=== PATIENT | female | born 1990 | race Hispanic/Latino ===

== ENCOUNTER 2017-03-03 17:32 | Outpatient (CLI) | payer OTHER ==
[2017-03-03 17:57] VITALS: BP 106/74
[2017-03-03] MEDS ORDERED: LACTATED RINGERS 500 ML IV ONE (19:00)
--- NOTE | 2017-03-03 20:19 | Event Note ---
Date: 03/03/17 preliminary report discussed with patient and : 36% grwoth, grade 1 placenta, vtx, GUI 13, NST cat 1 with irregular contractions. Images are not available to review at this time. Instructed to perform kick counts,call office for any concerns. Keep appointment for Tuesday.
--- NOTE | 2017-03-04 07:58 | Ultrasound Report ---
OB ULTRASOUND followup History: well-being. Technique: Transabdominal ultrasound with Doppler interrogation. Gestation: Single Position: Cephalic Amniotic Fluid: Normal GUI = 13.9 cm Placenta: Anterior Placental Grade: 1 Heart Rate: 149 BPM Cervical length: Obscured cm (Normal > 3 cm) BPD: 8.6 cm = 34 w 6 d HC: 32.2 cm = 36 w 2 d AC: 32.7 cm = 36 w 4 d FL: 7.3 cm = 37 w 2 d HC/AC Ratio: 0.98 Cephalic Index: 79.3 Estimated Weight: 2973 grams. 36 percentile. LMP: Not given Clinical age = 37 w 3 d EDC: 03/21/17 US Gest. Age = 36 w 2 d EDC: 03/29/17
== END 2017-03-03 20:12 | disposition home or self-care (01) ==
LOC: TRG 17:32
PROVIDERS: ATTEND Obstetrics & Gynecology
DX: O47.1 False labor at or after 37 completed weeks of gestation (principal); Z3A.37 37 weeks gestation of pregnancy
CPT/HCPCS: 59025; 76816

== ENCOUNTER 2018-05-02 11:52 | Emergency (ER) | payer OTHER ==
[2018-05-02] MEDS ORDERED: ZOFRAN IV ONE ×2 (12:27→14:34)
[2018-05-02] MEDS ORDERED: MORPHINE IV ONE (12:28)
[2018-05-02 12:46] LABS: Bilirubin,Urine NEG (Negative); Blood,Urine LG (Negative); Color,Urine Yellow (Yellow); Mucus,Urine 3+ /HPF; Urobilinogen,Urine < 2.0 mg/dL (<2.0)
[2018-05-02 12:47] LABS: RBC,Urine > 182.0 /HPF (0.0-6.0)
--- NOTE | 2018-05-02 12:57 | Emergency Department Report ---
Blank Doc - Documentation Documentation: Patient presents to the emergency department with a chief complaint of left flank pain. Patient states she has a history of kidney stones with surgical intervention previously. Patient denies nausea or vomiting with the pain. Patient states the pain is sharp in nature started this morning. Patient has no other complaints. Patient is now pain-free after receiving the morphine and Zofran. Plan will be to do CT of abdomen with blood work. Care be turned over to the mid-level Provider within the available for consultation. PHYSICAL exam vessel CVA tenderness and abdomen is soft, nontender, nondistended, positive bowel sounds.
[2018-05-02 13:03] LABS: HCG Qualitative,Urine Negative (Negative)
[2018-05-02 13:20] LABS: Basophils % (Auto) 0.2 % (0.0-1.8); Eosinophils % (Auto) 0.2 % (0.0-4.3); Hematocrit 39.4 % (30.3-42.9); Hemoglobin 13.2 gm/dl (10.1-14.3); Lymphocytes # (Auto) 1.3 K/mm3 (1.2-5.4); Lymphocytes % (Auto) 9.4 % (13.4-35.0); Mean Corpuscular HGB Conc 34 % (30-34); Mean Corpuscular Hemoglobin 30 pg (28-32); Mean Corpuscular Volume 89 fl (79-97); Monocytes # (Auto) 0.6 K/mm3 (0.0-0.8); Monocytes % (Auto) 4.5 % (0.0-7.3); Platelet Count 247 K/mm3 (140-440); Red Blood Count 4.44 M/mm3 (3.65-5.03); Red Cell Distribution Width 13.6 % (13.2-15.2)
[2018-05-02 13:44] LABS: Alanine Aminotransferase 8 units/L (7-56); Albumin 4.3 g/dL (3.9-5); BUN/Creatinine Ratio 20; Blood Urea Nitrogen 12 mg/dL (7-17); Calcium 8.8 mg/dL (8.4-10.2); Hemolysis Index 13
--- NOTE | 2018-05-02 13:52 | Emergency Department Report ---
ED Abdominal Pain HPI - General Chief Complaint: Abdominal Pain Stated Complaint: POSSIBLE KIDNEY STONE Time Seen by Provider: 05/02/18 12:26 Source: patient, family Mode of arrival: Ambulatory Limitations: No Limitations - History of Present Illness Initial Comments: Patient here complaining of left flank pain onset at 10 AM. States she feels like she has a kidney stone which she has a history of. She said she has decreased urine output and some blood in her urine. Pain is 8 out of 10 and sharp stabbing into her left flank area. No medication taken prior to coming to the emergency room. She denies any nausea or vomiting. Denies any fever or chills. Denies any vaginal bleeding or discharge. No alleviating or exacerbating factors. Denies any shortness of breath or chest pain. MD Complaint: flank pain -: This morning Location: L flank Radiation: none Migration to: no migration Severity: severe Severity scale (0 -10): 8 Quality: stabbing, sharp Consistency: intermittent Improves With: nothing Worsens With: nothing Context: other (kidney stones) Associated Symptoms: hematuria, other (decreased urine output). denies: nausea , vomiting, diarrhea, fever, chills, constipation, dysuria, hematemesis, hematochezia, melena, anorexia, syncope Treatments Prior to Arrival: other (none) - Related Data Previous Rx's Medication Instructions Recorded Last Taken Type Ciprofloxacin HCl [Ciprofloxacin 500 mg PO Q12H #14 tab 10/20/15 Unknown Rx TAB] HYDROcodone/APAP 5-325 [[address] 1 each PO Q6HR PRN #20 tablet 10/20/15 Unknown Rx 5/325] Ibuprofen [Motrin] 600 mg PO Q8H PRN #40 tablet 10/20/15 Unknown Rx Docusate Sodium [Colace] 100 mg PO BID PRN #60 capsule 03/31/17 Unknown Rx Ferrous Sulfate [Feosol 325 MG tab] 325 mg PO BID #60 tablet 03/31/17 Unknown Rx Ibuprofen [Motrin 800 MG tab] 800 mg PO TID PRN #15 tablet 05/02/18 Unknown Rx Ondansetron (Nf) [Zofran TAB] 8 mg PO Q8HR PRN #16 tablet 05/02/18 Unknown Rx oxyCODONE /ACETAMINOPHEN [Percocet 1 - 2 tab PO Q4H PRN #20 tablet 05/02/18 Unknown Rx 5/325 mg] Allergies Allergy/AdvReac Type Severity Reaction Status Date / Time Sulfa (Sulfonamide Allergy Hives Verified 05/02/18 12:04 Antibiotics) ED Review of Systems ROS: Stated complaint: POSSIBLE KIDNEY STONE Other details as noted in HPI Constitutional: denies: chills, fever Eyes: denies: eye discharge Respiratory: denies: cough, shortness of breath, SOB with exertion, SOB at rest , wheezing Cardiovascular: denies: chest pain, palpitations, edema, syncope Gastrointestinal: other (left flank pain). denies: abdominal pain, nausea, vomiting, diarrhea Genitourinary: denies: urgency, dysuria, discharge Musculoskeletal: denies: back pain, joint swelling, arthralgia, myalgia Skin: denies: rash, lesions Neurological: denies: headache ED Past Medical Hx - Past Medical History Previous Medical History?: Yes Hx Hypertension: No Hx Congestive Heart Failure: No Hx Diabetes: No Hx Deep Vein Thrombosis: No Hx Renal Disease: No (kidney stones) Hx Sickle Cell Disease: No Hx Kidney Stones: Yes Hx Asthma: No Hx COPD: No Hx HIV: No - Surgical History Past Surgical History?: Yes Additional Surgical History: KIDNEY STONE REMOVED - Family History Family history: hypertension - Social History Smoking Status: Never Smoker Substance Use Type: None - Medications Home Medications: Home Medications Medication Instructions Recorded Confirmed Last Taken Type Ciprofloxacin HCl [Ciprofloxacin 500 mg PO Q12H #14 tab 10/20/15 03/30/17 Unknown Rx TAB] HYDROcodone/APAP 5-325 [[address] 1 each PO Q6HR PRN #20 tablet 10/20/15 03/30/17 Unknown Rx 5/325] Ibuprofen [Motrin] 600 mg PO Q8H PRN #40 tablet 10/20/15 03/30/17 Unknown Rx Docusate Sodium [Colace] 100 mg PO BID PRN #60 capsule 03/31/17 Unknown Rx Ferrous Sulfate [Feosol 325 MG tab] 325 mg PO BID #60 tablet 03/31/17 Unknown Rx Ibuprofen [Motrin 800 MG tab] 800 mg PO TID PRN #15 tablet 05/02/18 Unknown Rx Ondansetron (Nf) [Zofran TAB] 8 mg PO Q8HR PRN #16 tablet 05/02/18 Unknown Rx oxyCODONE /ACETAMINOPHEN [Percocet 1 - 2 tab PO Q4H PRN #20 tablet 05/02/18 Unknown Rx 5/325 mg] ED Physical Exam - General Limitations: No Limitations General appearance: alert, in no apparent distress - Head Head exam: Present: atraumatic, normocephalic, normal inspection - Eye Eye exam: Present: normal appearance, PERRL, EOMI Pupils: Present: normal accommodation - ENT ENT exam: Present: normal exam, normal orophraynx, mucous membranes moist - Neck Neck exam: Present: normal inspection, full ROM. Absent: tenderness, lymphadenopathy - Respiratory Respiratory exam: Present: normal lung sounds bilaterally. Absent: respiratory distress, chest wall tenderness - Cardiovascular Cardiovascular Exam: Present: regular rate, normal rhythm, normal heart sounds. Absent: systolic murmur, diastolic murmur - GI/Abdominal GI/Abdominal exam: Present: soft, normal bowel sounds. Absent: distended, tenderness, guarding, rebound, rigid, organomegaly - Extremities Exam Extremities exam: Present: normal inspection, full ROM, normal capillary refill , other (No cce. + 2 pulses in all extremities, no neurovascular compromise). Absent: tenderness, pedal edema, joint swelling, calf tenderness - Back Exam Back exam: Present: normal inspection, CVA tenderness (L), other (ambulates without any difficulties). Absent: full ROM, tenderness, CVA tenderness (R), muscle spasm, paraspinal tenderness, vertebral tenderness, rash noted - Neurological Exam Neurological exam: Present: alert, oriented X3, normal gait - Psychiatric Psychiatric exam: Present: normal affect, normal mood - Skin Skin exam: Present: warm, dry, intact, normal color. Absent: rash ED Course Vital Signs 05/02/18 05/02/18 12:04 16:35 Temperature 98.4 F Pulse Rate 77 75 Respiratory 18 18 Rate Blood Pressure 115/74 Blood Pressure 105/73 [Left] O2 Sat by Pulse 96 100 Oximetry - Reevaluation(s) Reevaluation #1: 05/02/18 16:39 She given Zofran 4 mg IV and morphine 4 mg IV for nausea and pain. Her pain has been relieved. Reevaluation #2: 05/02/18 17:10 Visit given 1 L of normal saline, Zofran 4 mg IV for hydration and to prevent nausea. She tolerated well and says she felt a lot better. She was also started on Levaquin 750 mg by mouth for urinary tract infection ED Medical Decision Making - Lab Data Result diagrams: 05/02/18 13:02 05/02/18 13:02 - Radiology Data Radiology results: report reviewed Findings [facility] [address] [place] [address] Cat Scan Report Signed Patient: MANPREET BARRERA MR#: [id number] : 1990 Acct:[id number] Age/Sex: 27 / F ADM Date: 05/02/18 Loc: ED Attending Dr: Ordering Physician: YUAN HEBERT MD Date of Service: 05/02/18 Procedure(s): CT abdomen pelvis wo con Accession Number(s): [id number] cc: YUAN HEBERT MD CT ABDOMEN PELVIS WITHOUT CONTRAST: HISTORY: Abdominal pain. COMPARISON: 2 slice . TECHNIQUE: Helical CT in 1.25mm intervals without IV contrast. Sagittal and coronal reconstructions. FINDINGS: Lung bases: Normal. Liver: Normal. Biliary system: Multiple noncalcified cholesterol stones are noted in the gallbladder. No abnormal biliary dilatation or inflammation. Pancreas: Normal. Spleen: Normal. Kidneys/ureters/bladder: Bilateral renal stones are identified. There are 3 calyceal stones in the right kidney measuring up to 5 mm. There are 5 calyceal stones in the left kidney measuring up to 5 mm. A 5 mm calculus is identified along the intramural portion of the left UVJ resulting in mild left hydronephrosis. Adrenal glands: Normal. Aorta: Normal. Intestines: Unremarkable given no oral contrast was administered. Appendix: Normal. Pelvic viscera: Normal. Ascites: None. Adenopathy: None. Musculoskeletal: Normal. IMPRESSION: Bilateral renal calyceal stones as described. 5 mm calculus at the left UVJ, mildly obstructing. Cholelithiasis. Transcribed By: TTR Dictated By: ANDRES SANTOS JR, MD Electronically Authenticated By: ANDRES SANTOS JR, MD Signed Date/Time: 05/02/18 1400 DD/ 1357 TD/TT: 05/02/18 1400 - Medical Decision Making This is a 27-year-old female here with her family member reported that she is having left flank pain and she is relating it to kidney stone flare. Patient was screen by Dr. Hebert and seen by myself. Orders place and physical finance for left flank pain, acute cystitis with hematuria. CBC and CMP is stable, test is negative. Patient had CT scan of the abdomen and pelvis which was dictated by radiologist's and report reviewed by myself and which shows that she has stones in her kidney and also stone at the left UVJ. I discussed the patient and her family members she voiced understanding. Patient was treated with morphine 4 mg IV to manage her pain and she was given Zofran 8 mg IV and 4 mg increments to manage nausea. She was given normal saline 1 L for hydration. She is able to tolerate oral liquids prior to discharge. Patient is started on Levaquin 750 mg by mouth this managed urinary tract infection. Discharged home in stable condition, pain is controlled, vital signs stable she is afebrile and she was given prescription for Zofran, [address], Motrin and Levaquin and to follow-up with [place] [facility] as discussed. She voiced understanding. Critical care attestation.: If time is entered above; I have spent that time in minutes in the direct care of this critically ill patient, excluding procedure time. 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
--- NOTE | 2018-05-02 14:00 | Cat Scan Report ---
CT ABDOMEN PELVIS WITHOUT CONTRAST: HISTORY: Abdominal pain. COMPARISON: 2 slice 15/. TECHNIQUE: Helical CT in 1.25mm intervals without IV contrast. Sagittal and coronal reconstructions. FINDINGS: Lung bases: Normal. Liver: Normal. Biliary system: Multiple noncalcified cholesterol stones are noted in the gallbladder. No abnormal biliary dilatation or inflammation. Pancreas: Normal. Spleen: Normal. Kidneys/ureters/bladder: Bilateral renal stones are identified. There are 3 calyceal stones in the right kidney measuring up to 5 mm. There are 5 calyceal stones in the left kidney measuring up to 5 mm. A 5 mm calculus is identified along the intramural portion of the left UVJ resulting in mild left hydronephrosis. Adrenal glands: Normal. Aorta: Normal. Intestines: Unremarkable given no oral contrast was administered. Appendix: Normal. Pelvic viscera: Normal. Ascites: None. Adenopathy: None. Musculoskeletal: Normal. IMPRESSION: Bilateral renal calyceal stones as described. 5 mm calculus at the left UVJ, mildly obstructing. Cholelithiasis.
[2018-05-02] MEDS ORDERED: LEVAQUIN PO ONE (14:34)
[2018-05-02] MEDS ORDERED: NACL 0.9% 1000 ML 1,000 ML IV ONE (14:34)
[2018-05-02 16:36] VITALS: BP 105/73
== END 2018-05-02 16:35 | disposition home or self-care (01) ==
LOC: ED 11:52
DX: N20.0 Calculus of kidney (principal); N20.2 Calculus of kidney with calculus of ureter; Z88.2 Allergy status to sulfonamides; Z79.899 Other long term (current) drug therapy
CPT/HCPCS: 36415; 74176; 80053; 81001; 81025; 84703; 85025; 96374; 96375; 99284; J2270; J2405; J7030

== ENCOUNTER 2018-05-18 16:18 | Outpatient (CLI) | payer OTHER ==
--- NOTE | 2018-05-18 21:32 | XRay Report ---
FINAL REPORT EXAM: XR ABDOMEN 1V AP HISTORY: CALCULUS OF KIDNEY TECHNIQUE: KUB view(s) of abdomen. PRIORS: CT KUB, 20 October 2015. FINDINGS: 3-4 calcific densities project over the left renal lower pole outline, largest measuring approximately 3 mm. Gas and stool obscure right renal outline, although there may be some small calcifications also projected over the right renal outline. No other abnormal calcifications. No significant bowel dilatation or apparent pneumoperitoneum. Osseous structures grossly unremarkable. IMPRESSION: 1. Left and possibly right nephrolithiasis. 2. Nonobstructive bowel gas pattern.
== END 2018-05-18 16:19 | disposition home or self-care (01) ==
LOC: XRAY 16:18
PROVIDERS: ATTEND Urology
DX: N20.0 Calculus of kidney (principal)
CPT/HCPCS: 74018

== ENCOUNTER 2018-06-02 07:39 | Outpatient (CLI) | payer OTHER ==
--- NOTE | 2018-06-02 15:04 | Cat Scan Report ---
FINAL REPORT EXAM: CT ABDOMEN PELVIS WO CON HISTORY: CALCULUS OF URETER COMPARISON: CT of the abdomen and pelvis performed on 10/20/2015 TECHNIQUE: Multiple contiguous axial images were obtained from the lung bases to the pubic symphysis without administration of IV contrast. Reformatted sagittal and coronal images were available for review. FINDINGS: Lung bases: Normal. Visualized heart and mediastinum: Normal noncontrast appearance. Liver: Normal noncontrast appearance. Spleen: Normal noncontrast appearance. Pancreas: Normal noncontrast appearance. Gallbladder and Biliary Tree: There are multiple gallstones. There is no pericholecystic fluid or gallbladder wall thickening. There is no biliary ductal dilatation. Adrenal glands: Normal. Kidneys: Again seen are bilateral nonobstructive renal calculi, measuring up to 5 millimeters on the right and measuring up to 3 millimeters on the left there is no hydronephrosis or hydroureter. There are no ureteral calcifications.. Bladder: Normal. Pelvic organs: Normal. Bowel: No focal wall thickening. No evidence of obstruction. Normal appendix without surrounding inflammatory change. Peritoneum: No significant mesenteric adenopathy. No free air or free fluid. Vasculature: Abdominal aorta is normal in caliber without evidence of aneurysm. Normal noncontrast appearance of the portal venous system and the inferior vena cava. Bones and soft tissues: No suspicious osseous lesions. No acute fracture or dislocation. Small, fat containing periumbilical hernia. IMPRESSION: Nonobstructive bilateral renal calculi. No hydronephrosis or hydroureter. No ureteral calcifications.
== END 2018-06-02 07:40 | disposition home or self-care (01) ==
LOC: CT 07:39
PROVIDERS: ATTEND Urology
DX: N20.0 Calculus of kidney (principal); K42.9 Umbilical hernia without obstruction or gangrene
CPT/HCPCS: 74176

== ENCOUNTER 2018-11-16 08:09 | Day surgery (SDC) | payer BC, OTHER ==
[~2018-11-16 08:09] MED LIST: ANCEF/STERILE WATER 2 GM/20 ML 2 GM/20 ML SYRINGE IV SCH; ceFAZolin 2 GM in NACL 0.9% 100 ML IV ONE
[2018-11-16] MEDS ORDERED: ZOFRAN ONE (08:49)
[2018-11-16] MEDS ORDERED: ZEMURON IV ONE (08:49)
[2018-11-16] MEDS ORDERED: XYLOCAINE MPF 2% ONE (08:49)
[2018-11-16] MEDS ORDERED: DECADRON ONE (08:49)
[2018-11-16] MEDS ORDERED: SUBLIMAZE ONE (08:50)
[2018-11-16] MEDS ORDERED: DIPRIVAN 10 MG/ML IV ONE (08:50)
[2018-11-16] MEDS ORDERED: LACTATED RINGERS 1,000 ML ONE (09:12)
[2018-11-16] MEDS ORDERED: NEURONTIN ONE (09:13)
[2018-11-16] MEDS ORDERED: VERSED ONE (09:13)
--- NOTE | 2018-11-16 09:14 | Anesthesia Consultation ---
Anesthesia Consult and Med Hx Date of service: 11/16/18 - Airway Anesthetic Teeth Evaluation: Good ROM Head & Neck: Adequate Mental/Hyoid Distance: Adequate Mallampati Class: Class II Intubation Access Assessment: Probably Good - Pulmonary Exam CTA: Yes - Cardiac Exam Cardiac Exam: RRR - Pre-Operative Health Status ASA Pre-Surgery Classification: ASA1 Proposed Anesthetic Plan: General - Pulmonary Hx Smoking: No Hx Asthma: No COPD: No Hx Pneumonia: No Hx Sleep Apnea: No (MIYA PRE SCREEN NEGATIVE) - Cardiovascular System Hx Hypertension: No - Central Nervous System Hx Seizures: No Hx Psychiatric Problems: No - Endocrine Hx Renal Disease: No (kidney stones) Hx End Stage Renal Disease: No Hx Hypothyroidism: No Hx Hyperthyroidism: No - Hematic Hx Anemia: No Hx Sickle Cell Disease: No - Other Systems Hx Alcohol Use: No Hx Substance Use: No Hx Cancer: No
--- NOTE | 2018-11-16 09:14 | Anesthesia Day of Surgery ---
Anesthesia Day of Surgery - Day of Surgery Patient Examined: Yes Patient H&P Reviewed: Yes Patient is NPO: Yes Beta Blockers: No Cardiac Clearance: No Pulmonary Clearance: No Francisco's Test: N/A
[2018-11-16] MEDS ORDERED: ZOFRAN IV PRN (09:15)
[2018-11-16] MEDS ORDERED: TORADOL IV PRN (09:15)
[2018-11-16] MEDS ORDERED: DILAUDID IV PRN (09:15)
[2018-11-16] MEDS ORDERED: VERSED IV NR (10:00)
[2018-11-16] MEDS ORDERED: NEURONTIN PO NR (10:00)
[2018-11-16] MEDS ORDERED: LACTATED RINGERS 1,000 ML IV SCH (10:00)
[2018-11-16] MEDS ORDERED: MARCAINE 0.5% INFILTRATI ONE ×2 (10:13→10:40)
[2018-11-16] MEDS ORDERED: XYLOCAINE 1% 20 mL ONE (10:13)
[2018-11-16] MEDS ORDERED: XYLOCAINE 1% 20 mL INFILTRATI ONE (10:40)
[2018-11-16] MEDS ORDERED: WATER FOR IRRIG STERILE IR ONE (10:42)
[2018-11-16] MEDS ORDERED: TORADOL ONE (11:26)
[2018-11-16] MEDS ORDERED: DILAUDID ONE (11:40)
--- NOTE | 2018-11-16 11:47 | Short Stay Summary ---
Short Stay Documentation Date of service: 11/16/18 - History Principal diagnosis: SYMPTOMATIC CHOLELITHIASIS H&P: obtained from office - Allergies and Medications Current Medications: Allergies Sulfa (Sulfonamide Antibiotics) Allergy (Verified 11/09/18 17:49) Hives Home Medications Medication Instructions Recorded Confirmed Last Taken Type No Known Home Medications [No 05/23/18 11/16/18 Unknown History Reported Home Medications] Active Medications Gabapentin (Neurontin) 300 mg PO PREOP NR Stop: 11/16/18 23:59 Last Admin: 11/16/18 09:35 Dose: 300 mg Documented by: Hydromorphone HCl (Dilaudid) 0.5 mg IV Q10MIN PRN PRN Reason: Pain , Severe (7-10) Stop: 11/16/18 16:00 Cefazolin Sodium (Ancef/Sterile Water 2 Gm/20 Ml) 2 gm in 20 mls @ 80 mls/hr IV PREOP RENEE Stop: 11/16/18 23:59 Lactated Ringer's (Lactated Ringers) 1,000 mls @ 75 mls/hr IV DIRECT RENEE Last Admin: 11/16/18 09:36 Dose: 75 mls/hr Documented by: Ketorolac Tromethamine (Toradol) 30 mg IV ONCE PRN PRN Reason: Pain, Moderate (4-6) Stop: 11/16/18 16:00 Midazolam HCl (Versed) 2 mg IV PREOP NR Stop: 11/16/18 23:59 Last Admin: 11/16/18 09:36 Dose: 2 mg Documented by: Ondansetron HCl (Zofran) 4 mg IV ONCE PRN PRN Reason: Nausea And Vomiting - Brief post op/procedure progress note Date of procedure: 11/16/18 Pre-op diagnosis: calculus of gallbladder without cholecystitis or obstruction Post-op diagnosis: same Procedure: robotic assisted cholecystectomy Anesthesia: GETA, local Findings: gallbladder with stones Surgeon: JOVANNI MCCARTY Estimated blood loss: minimal Pathology: list (gallbladder) Specimen disposition: to lab Condition: stable - Hospital course Hospital course: Pt observed in PACU and discharged to home in stable condition when criteria met - Disposition Condition at discharge: Good Disposition: DC-01 TO HOME OR SELFCARE Short Stay Discharge Plan Activity: other (no driving if taking narcotic pain medications) Diet: regular Wound: open to air Additional Instructions: SEE PRINTED DISCHARGE INSTRUCTIONS Follow up with: BROOKE BROTHERS MD [Primary Care Provider] - 7 Days JOVANNI MCCARTY DO [Staff Physician] - 14 Days Prescriptions: oxyCODONE /ACETAMINOPHEN [Percocet 5/325] 1 tab PO Q6HR PRN #20 tablet PRN Reason: Pain
[2018-11-16] MEDS ORDERED: PERCOCET 5/325 PO PRN (12:14)
[2018-11-16] MEDS ORDERED: ROBINUL ONE (12:58)
[2018-11-16 14:03] VITALS: BP 108/55
--- NOTE | 2018-11-16 17:51 | Operative Report ---
PREOPERATIVE DIAGNOSIS: Calculus of the gallbladder without cholecystitis or obstruction. POSTOPERATIVE DIAGNOSIS: Calculus of the gallbladder without cholecystitis or obstruction. PROCEDURE: Robotic-assisted cholecystectomy. ANESTHESIA: General endotracheal anesthesia, local. FINDINGS: Gallbladder with stones. SURGEON: Angeles Shipman DO ESTIMATED BLOOD LOSS: Minimal. PATHOLOGY: Gallbladder. SPECIMEN DISPOSITION: To lab. CONDITION: Stable. HISTORY OF PRESENT ILLNESS AND INDICATIONS: The patient is a 27-year-old female who presented to the Surgery office with complaints of upper abdominal pain, which had been intermittent for the last several months. The patient was seen in the Emergency Room at an outside facility for which she was worked up with laboratories and imaging. At that time, her white blood cell count was elevated. An ultrasound and CT scan were performed. These showed gallstones, a contracted gallbladder, and mild gallbladder wall thickening. The patient was treated and discharged in stable condition. Due to these findings, a cholecystectomy was recommended when the patient was seen in the office. All risks, benefits and alternatives to surgery were discussed with the patient and questions answered. The laparoscopic robotic and open approaches were discussed with the patient and consent obtained. PROCEDURE IN DETAIL: The patient was identified in the preoperative area and taken back to the operating room and placed on the operating table in supine position. After anesthesia was induced, bilateral arms were tucked with all bony prominences padded appropriately. The abdomen was then prepped and draped in the usual sterile fashion and timeout was performed. Local anesthetic was infiltrated at all skin incision sites. A 12 mm supraumbilical incision was made through which a Veress needle was inserted. The Veress needle position was confirmed using saline drop test and the abdomen insufflated to 15 mmHg. Once the abdomen was insufflated, the Veress needle was removed and a 12 mm Optiview balloon trocar was placed through this incision under direct visualization. The abdomen was inspected and there was no underlying injury to any of the abdominal structures. The patient was placed in reverse Trendelenburg and tilted to the left. Gallbladder was visualized in the right upper quadrant. An additional 8 mm left upper quadrant robotic trocar was placed under direct visualization. The gallbladder was grasped and lifted cephalad. There were no adhesions to the gallbladder. Two additional 8 mm robotic trocars were then placed under direct visualization, one in the right mid abdomen and one in the right lateral abdomen. The robot was then docked. A Ray-Jesus was placed through the 12 mm incision into the abdomen. A Maryland grasper was placed into arm #1, Cadiere grasper in arm #2, and ProGrasp in arm #3. The camera was installed and all three instruments were advanced under direct visualization. The surgeon was moved to the console. The gallbladder was grasped by the fundus and lifted cephalad and retracted over the liver. The neck of the gallbladder was visualized and the cystic duct and artery were carefully skeletonized using the Maryland dissector. The lateral and medial peritoneal attachments of the gallbladder were dissected using a combination of the Maryland dissector as well as the monopolar scissors. Once the critical view of safety was obtained and the cystic duct and artery were seen as the only two structures entering the gallbladder, Hem-o-Mary clips were placed. Two clips were placed on the proximal aspect of the cystic duct and artery respectively, one distally on the cystic artery and duct respectively. There was an accessory cystic artery seen posterior to both of the structures, which was also clipped with a Hem-o-Mary clip. Cystic duct and artery were then transected in between the clips using the robotic scissors. The gallbladder was dissected off the liver bed using monopolar scissors. The gallbladder was then placed in the right upper quadrant and the gallbladder fossa and clips were inspected. There was no bleeding or bile leakage from the gallbladder fossa. The clips were visualized on the cystic duct and artery, and were intact. There was no bleeding or bile leakage from this area as well. The robot was then undocked and the surgeon scrubbed back in. The remainder of the procedure was performed laparoscopically. The gallbladder was placed into an EndoCatch bag and removed from the abdomen via the 12 mm port. The Ray-Jesus was also retrieved via the 12 mm port. The patient was placed into neutral position and the gallbladder fossa was once again inspected and there was no bleeding or bile leakage. The 12 mm port fascia was closed using 0 Vicryl interrupted sutures using Mejia-Edwin device. The remaining robotic trocars were then removed under direct visualization and the abdomen desufflated. Skin was once again infiltrated with local anesthetic at the incisions. The skin was closed with 4-0 Monocryl subcuticular stitches and skin glue. The gallbladder was inspected on the back table. The tubular structure, which was the cystic duct was the only tubular structure seen entering the gallbladder. There was bile leakage and stones expressible through this area. There was dark red backbleeding from the cystic artery. At the end of the case, all sponge, instrument, and sharp counts were correct x 2. The patient was awoken from anesthesia, extubated, and taken to PACU in stable condition. JOB# [id number] NK/NTS
== END 2018-11-16 14:45 | disposition home or self-care (01) ==
LOC: OR 08:09
PROVIDERS: ATTEND Surgery
DX: K80.10 Calculus of gallbladder with chronic cholecystitis without obstruction (principal); Z79.899 Other long term (current) drug therapy; Z88.2 Allergy status to sulfonamides; Z98.891 History of uterine scar from previous surgery; Z87.442 Personal history of urinary calculi; Z87.440 Personal history of urinary (tract) infections; Z98.890 Other specified postprocedural states; Z82.49 Family history of ischemic heart disease and other diseases of the circulatory system; Z83.3 Family history of diabetes mellitus
CPT/HCPCS: 47562; 81025; 88304; J0690; J1100; J1170; J1885; J2250; J2405; J2704; J3010; J7120; S2900

== ENCOUNTER 2020-01-07 14:56 | Outpatient (CLI) | payer BC ==
[2020-01-07 15:33] LABS: Basophils % (Auto) 0.4 % (0.0-1.8); Eosinophils % (Auto) 0.7 % (0.0-4.3); Hematocrit 40.6 % (30.3-42.9); Hemoglobin 13.3 gm/dl (10.1-14.3); Lymphocytes # (Auto) 1.4 K/mm3 (1.2-5.4); Lymphocytes % (Auto) 23.8 % (13.4-35.0); Mean Corpuscular HGB Conc 33 % (30-34); Mean Corpuscular Volume 91 fl (79-97); Monocytes # (Auto) 0.6 K/mm3 (0.0-0.8); Monocytes % (Auto) 10.2 % (0.0-7.3); Platelet Count 252 K/mm3 (140-440); Red Blood Count 4.45 M/mm3 (3.65-5.03); Red Cell Distribution Width 13.4 % (13.2-15.2)
[2020-01-07 15:37] LABS: Alanine Aminotransferase 189 units/L (7-56); Albumin 4.3 g/dL (3.9-5); BUN/Creatinine Ratio 27; Blood Urea Nitrogen 19 mg/dL (7-17); Calcium 9.3 mg/dL (8.4-10.2); Hemolysis Index 7
== END 2020-01-07 14:57 | disposition home or self-care (01) ==
LOC: LAB 14:56
PROVIDERS: ATTEND Surgery
DX: R10.13 Epigastric pain (principal); Z90.49 Acquired absence of other specified parts of digestive tract
CPT/HCPCS: 36415; 80053; 85025

== ENCOUNTER 2020-01-11 09:20 | Outpatient (CLI) | payer BC ==
--- NOTE | 2020-01-11 11:11 | Magnetic Resonance Report ---
MRCP INDICATION: Abnormal liver enzymes, history of gallstones, cholecystectomy in November 2018 TECHNIQUE: Axial and coronal images were obtained through the abdomen. Radial MRCP images were obtain ed. No contrast is administered. FINDINGS: The common bile duct is normal in diameter measuring approximately 5mm. No filling defects are seen w ithin the common duct. The intrahepatic bile ducts are normal in diameter. The pancreatic duct is nor mal in diameter. No focal hepatic lesions are seen. Size is normal. No focal pancreatic lesions are seen. IMPRESSION: There is no biliary dilatation. The pancreatic duct is normal in diameter. No filling defects are see n within the biliary system. The liver and pancreas are unremarkable. Signer Name: New Tsai MD Signed: 01/11/2020 11:07 AM Workstation Name: [id number]
== END 2020-01-11 09:21 | disposition home or self-care (01) ==
LOC: MRI 09:20
PROVIDERS: ATTEND Surgery
DX: R10.13 Epigastric pain (principal); R94.5 Abnormal results of liver function studies
CPT/HCPCS: 74181